=== PATIENT | male | born 1990 | race Caucasian/White ===

== ENCOUNTER 2018-07-30 19:35 | Emergency (ER) | payer MEDICAID, SELFPAY ==
[2018-07-30 19:36] VITALS: BP 135/70; PULSE 92; PULSE 94; RESP 14; RESP 17; TEMP 36.9; O2SAT 98; BMI 31.9
--- NOTE | 2018-07-30 21:11 | CT_ITS ---
STUDY: CT ABDOMEN AND PELVIS WITHOUT CONTRAST REASON FOR EXAM: Male, 27 years old. Abdominal pain RADIATION DOSAGE (If Supplied By Facility): CTDIvol = ( 19.61 ) mGy, DLP = ( 1166.03 ) mGycm TECHNIQUE: Transaxial images were obtained from the dome of the diaphragm to the symphysis pubis without oral contrast, and without intravenous contrast. Sagittal and coronal images were reconstructed. Individualized dose optimization techniques were used for this CT. COMPARISON: None. FINDINGS: This is a limited non-IV nonoral contrast study. There are small calcified granulomas within the left lower lobe.. The visualized portions of the heart are within normal limits. Normal liver. Normal gallbladder and extrahepatic biliary system. Normal spleen. Normal pancreas. Normal bilateral adrenal glands. Normal right kidney. Normal left kidney. Normal visualized stomach. Normal small intestine. There is mild colonic distention with mild colonic fecal load Normal abdominal aorta. Normal inferior vena cava. Normal retroperitoneum. Normal urinary bladder. Normal abdominal wall. Normal osseous structures. CT/Abdomen/Pelvis without Cont IMPRESSION: Mild colonic distention likely ileus, this is a limited non-IV nonoral contrast study Electronically Signed: Uriel Bojorquez, at 22:46 EDT Tel , Service support ,
[2018-07-30 21:26] LABS: Absolute Lymphocyte Count 1.83 X10^3/ul (0.83-4.51); Absolute Neutrophil Count 3.2 X10^3/uL (2.0-7.7); Basophil# 0.03 X10^3/uL; Basophil% 0.5 % (0-1); Eosinophil# 0.25 X10^3/uL; Eosinophils% 4.4 % (0-5); Hematocrit 41.4 % (40-54); Hemoglobin 14.2 g/dl (13.0-16.5); Lymphocyte # 1.83 X10^3/ul (4.0); Lymphocyte % 32.1 % (19-41); Mean Corp Hgb Conc 34.3 g/gl (32-36); Mean Corpuscular Hgb 29.3 pg (27.0-32.0); Mean Corpuscular Volume 85.4 fL (80-94); Mean Platelet Vol. 11.2 fl (6.2-12.0); Monocyte# 0.42 X10^3/uL; Monocyte% 7.4 % (0-10); Neutrophil # 3.16 X10^3/uL (2.7-7.7); Neutrophil % 55.4 % (47-70); Platelet Count 239 K/mm3 (150-450); RBC Distribution Width CV 12.9 % (11.6-14.6); RBC Distribution Width SD 40.3 fl (35.1-43.9); Red Blood Count 4.85 M/mm3 (4.6-6.2); White Blood Count 5.7 K/mm3 (4.4-11.0)
[2018-07-30 21:27] LABS: Bacteria 0 SEEN /hpf (None Seen); Red Blood Cells-Urine 0 SEEN /hpf (0-5); Squamous Epithelial Cells - UA 0 SEEN /hpf (0-5)
[2018-07-30] MEDS: Morphine 4 MG/ML Syringe IV (21:27)
[2018-07-30 21:29] LABS: POSITIVE COUNT NO; POSITIVE DIFFERENTIAL NO; POSITIVE MORPHOLOGY NO
[2018-07-30 21:34] LABS: Color, Urine Yellow (Yellow); Glucose, Dipstick Normal (Normal); Ketone-Dipstick Negative (Negative); Leukocyte Esterase-Dipstick Negative /ul (Negative); Nitrite-Dipstick Negative (Negative); Occult Blood-Urine 10 /ul (Negative); Protein-Dipstick 15 mg/dl (Negative); Specific Gravity, Urine 1.025 (1.002-1.030); Urine Bilirubin Dipstick Negative (Negative); Urine Clarity Clear (Clear); Urine Urobilinogen 4 mg/dl (Normal)
[2018-07-30 21:40] LABS: Mucous, Urine 3+ /hpf (<or=2+); White Blood Cells 0-5 SEEN /hpf (0-5)
[2018-07-30 21:42] LABS: ALB/GLOB Ratio 1.1 RATIO (0.9-2.4); AST(SGOT) 39 U/L (15-37); Alanine Aminotransfer ALT/SGPT 76 U/L (16-61); Albumin, Serum 3.7 g/dL (3.2-5.0); Alkaline Phosphatase 96 U/L (45-117); Anion Gap 7 (5-15); BUN 12 mg/dL (7-18); BUN/Creat Ratio 12.7 RATIO (10-20); Calcium,Total 8.2 mg/dL (8.5-10.1); Chloride 109 mmol/L (98-107); Creatinine, Serum 0.94 mg/dL (0.70-1.30); EST Glomerular Filtration Rate 102 mL/min (>60); Est Glom Filt Rate - Afr Amer 124 mL/min (>60); Estimated Creatinine Clearance 142.33 ml/min; Globulin 3.3 g/dL (2.2-4.2); Glucose 102 mg/dL (74-106); Lipase 123 U/L (73-393); Sodium Level 139 mmol/L (136-145)
[2018-07-30 23:29] VITALS: BP 121/78; PULSE 76; RESP 16; O2SAT 98
--- NOTE | 2018-07-31 00:16 | ED.VISSUMM ---
- ER Visit Summary Date of Service: 07/31/18 Chief Complaint: Abdominal pain History of Present Illness: The patient is a 27 M who presents with abdominal pain that has been getting worse over the past 2-3 days. Patient states the pain is intermittent and lasts for several hours. Patient describes the pain is sharp. Patient states pain is over the right side of his abdomen. Patient admits to nausea and one episode of vomiting. Patient states he did have diarrhea but has not had a bowel movement since yesterday. Patient denies any urinary complaints. Patient states he had a fever of 101 at home. Physical Examination: Vital signs are stable. Patient is afebrile. Patient is in no acute distress. Oral mucosa is pink and moist. Neck is supple. Trachea is midline. There is no JVD noted. Heart was regular rate and rhythm. Lungs are clear and equal bilateral. Abdomen is soft. There is right upper and right lower quadrant tenderness. There is no rebound or guarding noted. Bowel sounds are normal. Cranial nerves II through XII are intact. There are no focal motor or sensory deficits noted. Test Results: CT scan of the abdomen and pelvis was obtained. There is some mild colonic distention. CBC was normal. Metabolic profile showed a mild hypokalemia of 3.0. Urinalysis was normal. Emergency Department Course and Treatment: Patient was given a dose of morphine initially. Patient was given a dose of potassium here in the emergency department. Patient was instructed to follow-up with his primary care physician in 7-10 days. Patient understood and was agreeable with the plan. All questions were answered. Disposition: Discharge home Impression: Abdominal pain This note was generated with [employer] dictation software. It may contain incorrect words, spelling, and punctuation that were not noted in review of the chart prior to signing ED Disposition - Plan for ED Patient: Disposition: Home or Assisted Living Diagnosis: Abdominal pain Instructions: ED Abdominal Pain Unkn Cause Referrals: Care Physician,No Primary [Primary Care Provider] -
--- NOTE | 2018-07-31 00:22 | ED.DCSUM_ITS ---
- ER Visit Summary Date of Service: 07/31/18 Chief Complaint: Abdominal pain History of Present Illness: The patient is a 27 M who presents with abdominal pain that has been getting worse over the past 2-3 days. Patient states the pain is intermittent and lasts for several hours. Patient describes the pain is sharp. Patient states pain is over the right side of his abdomen. Patient admits to nausea and one episode of vomiting. Patient states he did have diarrhea but has not had a bowel movement since yesterday. Patient denies any urinary complaints. Patient states he had a fever of 101 at home. Physical Examination: Vital signs are stable. Patient is afebrile. Patient is in no acute distress. Oral mucosa is pink and moist. Neck is supple. Trachea is midline. There is no JVD noted. Heart was regular rate and rhythm. Lungs are clear and equal bilateral. Abdomen is soft. There is right upper and right lower quadrant tenderness. There is no rebound or guarding noted. Bowel sounds are normal. Cranial nerves II through XII are intact. There are no focal motor or sensory deficits noted. Test Results: CT scan of the abdomen and pelvis was obtained. There is some mild colonic distention. CBC was normal. Metabolic profile showed a mild hypokalemia of 3.0. Urinalysis was normal. Emergency Department Course and Treatment: Patient was given a dose of morphine initially. Patient was given a dose of potassium here in the emergency department. Patient was instructed to follow-up with his primary care physician in 7-10 days. Patient understood and was agreeable with the plan. All qu estions were answered. Disposition: Discharge home Impression: Abdominal pain This note was generated with [employer] dictation software. It may contain incorrect words, spelling, and punctuation that were not noted in review of the chart prior to signing ED Disposition - Plan for ED Patient: Disposition: Home or Assisted Living Diagnosis: Abdominal pain Instructions: ED Abdominal Pain Unkn Cause Referrals: Care Physician,No Primary [Primary Care Provider] -
[2018-07-31 00:32] VITALS: BP 122/74; PULSE 79; RESP 16; O2SAT 98
== END 2018-07-31 00:32 | disposition home or self-care (01) ==
PROVIDERS: Emergency Provider Emergency Medicine
DX: R10.9 Unspecified abdominal pain (principal); K63.89 Other specified diseases of intestine; R11.2 Nausea with vomiting, unspecified; E87.6 Hypokalemia; R51 Headache
CPT/HCPCS: 74176; 80053; 81001; 83690; 85025; 96374; 99284; A4216

== ENCOUNTER 2018-12-04 15:35 | Emergency (ER) | payer MEDICAID, SELFPAY ==
[2018-12-04 15:36] VITALS: BP 129/96; PULSE 92; RESP 16; TEMP 35.8; O2SAT 97; BMI 33.7
--- NOTE | 2018-12-04 16:19 | EKG12_ITS ---
Test Reason : ABDOMINAL PAIN Blood Pressure : / mmHG Vent. Rate : 076 BPM Atrial Rate : 076 BPM P-R Int : 148 ms QRS Dur : 088 ms QT Int : 374 ms P-R-T Axes : 015 079 030 degrees QTc Int : 420 ms Normal sinus rhythm Normal ECG Confirmed by VERENA PUENTES, BARBY ([id number]), editor book MARTIN WOODRUFF ([id number]) on 12/07/2018 12:22:56 PM Referred By: DC Confirmed By:BARBY ALBARADO MD
--- NOTE | 2018-12-04 16:20 | US_ITS ---
STUDY: ABDOMINAL ULTRASOUND - RIGHT UPPER QUADRANT REASON FOR VISIT: Male, 28 years old. Epigastric right upper quadrant pain for several years TECHNIQUE: Ultrasound evaluation of the right upper quadrant was performed with real-time and static sharpe-scale imaging. TECHNICAL QUALITY: Adequate. COMPARISON: 30 July 2018 FINDINGS: Liver: The liver measures 16 cm. There is normal echogenicity of the liver. The bile ducts are within normal limits. There is hepatic color flow. The direction of portal flow is hepatopetal. There is no demonstrated mass lesion. Gallbladder: Normal distended gallbladder. The gallbladder wall measures 2 mm. There is a negative sonographic Garcia's sign. There is no pericholecystic fluid. There are no gallstones. Common Bile Duct (C.B.D.): The common bile duct measures 5 mm. Pancreas: Is visualized in the suboptimal fashion Right Kidney: Normal size of the right kidney. The right kidney measures 12.1 x 5.1 x 5.2 cm. Normal renal cortex. The right cortex measures 1.8 cm. There is no demonstrated renal mass or cyst. There is no right hydronephrosis. US/Gallbladder IMPRESSION: Normal right upper quadrant ultrasound examination. Electronically Signed: Alice Jones, at 18:03 EDT Tel , Service support ,
--- NOTE | 2018-12-04 16:20 | RAD_ITS ---
STUDY: X-RAY CHEST REASON FOR EXAM: Male, 28 years old. Chest pain and epigastric pain TECHNIQUE: Frontal portable view of the chest was performed COMPARISON: None. FINDINGS: The lungs are clear and expanded. There is no demonstrated pleural abnormality. Normal size heart. Normal mediastinum and bob. Normal visualized pulmonary arteries. Normal visualized aortic arch and descending thoracic aorta. Normal visualized thoracic spine. Normal visualized ribs, clavicles, and shoulders. There is no demonstrated abnormality of the visualized soft tissue structures of the upper abdomen. RAD/Chest 1 View (Portable) IMPRESSION: Normal x-ray examination of the chest. Electronically Signed: Alice Jones, at 16:48 EDT Tel , Service support ,
--- NOTE | 2018-12-04 16:21 | ED.DCSUM_ITS ---
- ER Visit Summary Date of Service: 12/04/18 Chief Complaint: Abdominal pain History of Present Illness: The patient is a 28 M with intermittent abdominal pain for years. Pain came back today at work and it was severe. He was unable to continue at work, so he presented to the ED. The pain is in his epigastric region and radiates to his right upper quadrant, chest, and mid back. Associated with dizziness, nausea, and burping. He has noted some association with food and stress, but his symptoms are not consistent. 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 He was seen for abdominal pain in July and had a CT that showed mild colonic distention. Physical Examination: Afebrile and vital signs unremarkable. Alert and oriented. Heart regular. Lungs clear. Abdomen slightly tender in the right upper quadrant. No guarding or rebound. CVAs nontender. Skin appears normal without jaundice or pallor. Test Results: EKG, chest x-ray, labs, gallbladder ultrasound pending. Emergency Department Course and Treatment: Patient treated with fluids and GI cocktail while awaiting results. CBC normal. CMP unremarkable. Lipase normal. Troponin normal. EKG showed sinus rhythm at a rate of 76. No sign of acute ischemia or infarction pattern. Chest x-ray unremarkable. Right upper quadrant ultrasound was unremarkable. I suspect the patient may have reflux, spasm, gastritis, ulcer. I believe the patient is appropriate for outpatient follow-up. He will be treated with an H2 vero. Follow-up with his PCP. Return for any new or worsening issues. Treatment Plan: As above Disposition: Discharged Impression: 1. Epigastric pain This note was generated with [employer] dictation software. It may contain incorrect words, spelling, and punctuation that were not noted in review of the chart prior to signing ED Disposition - Plan for ED Patient: Referrals: Care Physician,No Primary [NON-STAFF] -
[2018-12-04] MEDS: 0.9% Normal Saline 1,000 ML 1000 ML IV (16:37)
[2018-12-04] MEDS: Mag Hydrox/Al Hydrox/Simeth 30 ML UDC PO (16:37)
[2018-12-04 16:39] LABS: Absolute Lymphocyte Count 1.82 X10^3/uL (0.83-4.51); Basophil# 0.03 X10^3/uL; Basophil% 0.4 % (0-1); Eosinophils% 2.6 % (0-5); Hematocrit 43.1 % (40-54); Hemoglobin 14.5 g/dL (13.0-16.5); Lymphocyte # 1.82 X10^3/ul (4.0); Lymphocyte % 23.8 % (19-41); Mean Corp Hgb Conc 33.6 g/dL (32-36); Mean Corpuscular Hgb 29.4 pg (27.0-32.0); Mean Corpuscular Volume 87.2 fL (80-94); Mean Platelet Vol. 11.2 fl (6.2-12.0); Monocyte# 0.57 X10^3/uL; Monocyte% 7.5 % (0-10); NRBC Flagged by Analyzer 0 % (0-5); Neutrophil # 4.99 X10^3/uL (2.7-7.7); Neutrophil % 65.3 % (47-70); Platelet Count 245 K/mm3 (150-450); RBC Distribution Width CV 12.4 % (11.6-14.6); RBC Distribution Width SD 39.4 fl (35.1-43.9); Red Blood Count 4.94 M/mm3 (4.6-6.2); White Blood Count 7.6 K/mm3 (4.4-11.0)
[2018-12-04 17:03] LABS: ALB/GLOB Ratio 1.1 RATIO (0.9-2.4); AST(SGOT) 14 U/L (15-37); Alanine Aminotransfer ALT/SGPT 29 U/L (16-61); Albumin, Serum 3.9 g/dL (3.2-5.0); Alkaline Phosphatase 96 U/L (45-117); Anion Gap 4 (5-15); BUN 11 mg/dL (7-18); BUN/Creat Ratio 11.9 RATIO (10-20); Calcium,Total 9.3 mg/dL (8.5-10.1); Chloride 106 mmol/L (98-107); Creatinine, Serum 0.92 mg/dL (0.70-1.30); EST Glomerular Filtration Rate 104 mL/min (>60); Est Glom Filt Rate - Afr Amer 126 mL/min (>60); Estimated Creatinine Clearance 144.15 ml/min; Globulin 3.5 g/dL (2.2-4.2); Glucose 84 mg/dL (74-106); Lipase 109 U/L (73-393); Protein, Total 7.4 g/dL (6.4-8.2); Sodium Level 137 mmol/L (136-145)
--- NOTE | 2018-12-04 18:24 | ED.DEP ---
ED Disposition - Plan for ED Patient: Instructions: ABDOMINAL PAIN, Unkown Cause, (Male) Prescriptions: Famotidine [Acid Controller] 20 mg PO BID #60 tab Prescription Printed Referrals: Keara Elkins [NON-STAFF] -
== END 2018-12-04 18:57 | disposition home or self-care (01) ==
LOC: ED 16:23
PROVIDERS: Emergency Provider Emergency Medicine; Family Provider Family Medicine; PCP Family Medicine
DX: R10.13 Epigastric pain (principal); R10.11 Right upper quadrant pain; M54.9 Dorsalgia, unspecified; R11.0 Nausea; R42 Dizziness and giddiness
CPT/HCPCS: 71045; 76705; 80053; 83690; 84484; 85025; 93005; 96360; 96361; 99284; J7030; A4216

== ENCOUNTER 2019-02-19 18:51 | Emergency (ER) | payer MEDICAID, SELFPAY ==
[2019-02-19 18:52] VITALS: BP 151/82; PULSE 92; RESP 18; TEMP 36.7; O2SAT 99; BMI 33.7
--- NOTE | 2019-02-19 19:30 | ED.RN ---
PT LEFT WITHOUT BEING SEEN.
== END 2019-02-19 19:30 | disposition left against medical advice (07) ==
LOC: ED 20:27
PROVIDERS: Emergency Provider Emergency Medicine; Family Provider Family Medicine; PCP Family Medicine
DX: R10.9 Unspecified abdominal pain (principal); Z53.21 Procedure and treatment not carried out due to patient leaving prior to being seen by health care provider

== ENCOUNTER 2019-08-16 09:00 | Outpatient (RCR) | payer MEDICAID, SELFPAY ==
--- NOTE | 2019-08-16 09:00 | BH.COMM_ITS ---
Communication Note - Communication with Client Communication Note: Met with pt to complete intial paperwork and [place] suicide risk screening. No signicant changes since pre-admission screening. Low risk for suicide. Denies active SI,plan, or intent. Protective factors. Future- oriented.
--- NOTE | 2019-08-16 09:14 | BH.SGPN.GN ---
Behaviors/Verbalizations/Mental Status: []Client alert and oriented, casual dress, hygiene tended to. Eye contact good. Motor activity appropriate. Speech within normal limits. Affect congruent, mood anxious, depressed. Thoughts linear, logical, no signs of hallucinations or delusions. Reviewed client?s symptom tracker, client indicated a 3/5, with 5 being severe, for suicidal ideation and a 0/5 for suicidal intent. Pt completed the [facility] suicidality screener and was not deemed an acute risk. Pt does not seem to be imminent risk to harm self or others. Client Response/Progress/Benefit: []Pt new to IOP tx. He responded well to session AEB pt listening attentively to others and sharing thoughts with group. Pt identified a mental health positive as taking the step to begin IOP tx as he had been nervous about doing so. Expressed knowing it is time to focus on his mental health. Identified additional win as reaching out to supports and beginning an online role playing game with them as a way to socialize and try something new. Pt identified his current stressor is feeling distant from his family. Pt seemed to benefit from support from peers and identifying mental health positives. Pt to continue IOP to increase healthy coping, challenge negative thinking and prevent decompensation. Narrative Note: []
--- NOTE | 2019-08-16 10:17 | BH.SGPN.GN ---
Behaviors/Verbalizations/Mental Status: []Client alert and oriented, casually dressed and groomed. Eye contact good. Motor activity appropriate. Speech within normal limits. Affect congruent, mood anxious. Thoughts linear, logical, no signs of hallucinations or delusions. Client Response/Progress/Benefit: []Client receptive of session, attentive in discussion and activity. Client discussed the quote and provided input that ?we stuff because we might be afraid to feel, or we don?t want our emotions to be right.? Discussed impact of ?stuffing? emotions which included overacting, anger outbursts, and ruined relationships. Client shared when he does not manage his anger well ?I?ll see things through an anger lens.? Client helped group identify barriers that impact one?s ability to communicate when emotions are high. These barriers included; shutting down, being ?snippy,? passive aggressive remarks, loud tone, misinterpretations, and negative thinking. Expressed that unmanaged emotions can negatively impact interactions with others and hurt oneself as well. Client participated in the activity and did well to manage emotions throughout. Client reported he learned a lot about how he responds during pressure situations and he used mindfulness to help himself cope in the moment. Client appeared to benefit from increasing awareness of how emotions can impact communication and practicing in the moment coping skills. Client?s first day of IOP. Will continue tx to prevent decompensation, improve mood stability, and decrease intensity and duration of symptoms. Narrative Note: []
--- NOTE | 2019-08-16 11:25 | BH.SGPN.GN ---
Behaviors/Verbalizations/Mental Status: []Client alert and oriented, casual dress, hygiene tended to. Eye contact fair. Motor activity appropriate. Speech within normal limits. Affect congruent, mood euthymic. Thoughts linear, logical, no signs of hallucinations or delusions. Client Response/Progress/Benefit: []Client engaged in session AEB client listening attentively to peer and providing input at times during session. Attentive during psychoeducation on 4 zones of regulation. Client able to identify how he feels in each zone as well as how he acts in each zone. Client able to identify what behaviors he exhibits when in the different emotional zones. Group identified coping skills can use to support self in each zone which included: journaling, opposite action, exercising, listening to music, drawing, and puzzle. Client stated he is most often in a heightened state of alertness which client reported results in client moving to a low state of alertness because feels depressed. Client stated he will focus on utilizing breathing techniques when in heightened state of alertness. Benefited from increased education on zones of regulation or stages of alertness for emotions and healthy coping skills to use for each zone. First day in IOP. Will continue IOP tx to increase healthy coping skills and prevent decompensation. Narrative Note: []
--- NOTE | 2019-08-16 15:16 | BH.DR.ITP ---
Initial Treatment Plan - Patient Information Visit Information: ADMISSION DATE: EXPECTED LOS: 4-6 weeks Diagnoses:: Major depressive disorder recurrent severe without psychosis F33.2; generalized anxiety disorde - Problems/Symptoms Problem #1:: Depression Symptom:: Sadness, hopelessness, worthlessness, guilt, fleeting SI Problem #2:: Anxiety Symptom:: Rumination, panic attacks
== END 2019-08-17 23:59 ==
LOC: BHIOP 09:00
PROVIDERS: Referring Provider Psychiatry & Neurology Psychiatry; Visit Provider Psychiatry & Neurology Psychiatry
DX: F33.2 Major depressive disorder, recurrent severe without psychotic features (principal); F41.1 Generalized anxiety disorder
CPT/HCPCS: H2020

== ENCOUNTER 2019-08-18 09:00 | Outpatient (RCR) | payer MEDICAID, SELFPAY ==
--- NOTE | 2019-08-18 09:58 | BH.NA_ITS ---
Physical Data - Vital Signs Pulse Rate: 80 Respiratory Rate: 16 Blood Pressure: 128/68 - Height/Weight Height: 1.88 m Weight:: 127.006 kg Weight in Pounds: 280.0 lbs Current Medication Compliance - Medication Compliance Do you take your medication as prescribed?: Yes Nutritional History - Appetite Nutritional Instructions:: If client shows signs of a swallowing problem, weight change of 10 pounds or more in the last month, or is on a diabetic diet, the physician will review and request a dietitian consult, as appropriate. All unintentional weight loss will be referred to the physician for decision on need for dietitian consult. Describe your appetite:: Good Additional nutritional information:: Client states it is normal for him to not eat at all during the day and eat several large meals in the evening. Functional Assessment - Sleep Pattern Describe any problems with sleeping: Client states he stays awake most of the ni ght most of the time playing video games, watching videos, etc. Client states he takes a nap during the day most of the time. Client very vague about how many hours he actually sleeps at night. - Activities Motor Activity:: Functional Sensory/Communication Assess - Vision Problems Do you have any vision problems?: Glasses - Communication Problems Do you have difficulty understanding what people are saying?: No Medical Problems/History - Respiratory Conditions Respiratory: Asthma Comments:: Client states he currently does not take any treatment for asthma. - Gastrointestinal Conditions Gastrointestinal: Other (See comments) Comments:: history of gastroschisis when he was born. - Pain Assessment Do you have acute or chronic pain?: No - Family History Family History: Family History (Last Reviewed 02/19/18 @ 12:23 by Cherelle Patel) Other Alcoholism Surgical History - Surgical History Have you had any surgeries? If so, list type and date:: Yes - gastroschisis at . Substance Abuse - Substance Abuse Please describe substance abuse in the last 30 days:: Client states he very rarely drinks alcohol socially, maybe a few times a year. Client denies tobacco use. Client states a past use of marijuana, states his last use was a very small amount a few weeks ago. Client states his uses marijuana and occasionally he will use with her. Client states he drinks 4-5 cans of pop a day, usually in the evening. Client realizes this is probably impacting his sleep and he should not drink so much caffiene in the evening. Mental Status Summary - Mental Status Significant Findings/Observations on Appearance and Mood:: Client is alert and oriented x 4. Client is casually groomed. Client is cooperative with assessment. Client makes good eye contact. Clients speech is coherent, loud at times, rapid at times. Client appears mildly anxious. Client with fair concentration, usually able to answer question the first time it is asked. Client makes logical associations and has normal processing. Client denies delusions/hallucinations, no evidence of same. Client denies SI. Suicide Assessment - Suicidal Ideation Are you currently or have you been suicidal in the past?: Yes - client denies current SI Suicidal Intentional Rating Scale (SIRS): Suicidal thoughts (past) Physician Notification: If Active suicidal thoughts/Will not contract for safety is checked, contact physician and document in the Physician Notification section below. Past Psychiatric History - MH Treatment Hx Past Psychiatric Medications:: Prozac and Buspar. Client states he stopped taking Buspar after it made him feel dizzy. Age of first mental health symptoms: Client states he was diagnosed with depression and anxiety approximately 6 months ago. Client states his has mental health issues and had him start going to the [facility] with her for therapy. Describe (age, circumstance, etc) any past hospitalizations: None Current providers for mental health treatment (counselor, psychiatrist, watch caser, etc.): Client has therapist and psychatrist at [facility] in [place]. Fall Risk Assessment - Age Age: Less than 60 - Mental Status Mental Status: Willing & able to ask for assistance when needed - Physical Status Physical Status: No problems - Impairments Impairments: None - Elimination Elimination: Continent AND independent - Gait or Balance Gait or Balance: Walks independently - Hx of Falls History of falls in the past 6 months: No known history - Medications/Substances Psychotropics:: Antihistamines (e.g. Benadryl) Medications/substances used within the past 24 hours or ordered to administer: 1-2 of the medications/substances listed above - Total Score Total Points:: 1 RN Summary of Impressions - Impressions Recommendations: Include psychiatric and medical issues, treatment planning recommendations, and discharge planning needs. Impressions: Psychiatric Issues: major depressive disorder recurrent severe without psychosis, generalized anxiety disorder - Level of Care How do the client's current symptoms and functional deficits support need for this level of care?: Client states his feelings of depression and anxiety have signficantly worsened in the last 2 months or so. Client states his anxiety got out of hand and caused him to quit several jobs, many before he even started work. Client states he gets so anxious thinking about going to work, stating he thinks about how it is a end job but that he doesn't want to try harder to do anything better with myself. Client reports feelings of decreased energy, decreased motivation, hopelessness, feelings of panic, restlessness and racing thoughts. Client states his 's mental health is a stressor for him, but reports he is in good spirits today because his and him have been fighting less and she is being more understanding of his feelings and that makes him feel better. IOP will promote gains and prevent further decompensation while providing social support and skills training.
[2019-08-18 11:06] VITALS: BP 128/68; PULSE 80; RESP 16
--- NOTE | 2019-08-18 11:14 | BH.PSY.EVA_ITS ---
Psychiatric Evaluation - Initial Evaluation Initial Evaluation: [] History of Present Illness: [] The patient is a 28-year-old male who is been for 18 months and is currently living with his and 6-year-old stepdaughter in a duplex that they rent. He was referred by his to the [facility] behavioral health IOP program for worsening depression and anxiety. He has had symptoms of depression increasing anxiety for about the past 4 months. He has been unable to function at work secondary to anxiety and he was getting panic attacks and racing thoughts and an impending sense of doom with increased heart rate prior to quitting work. Now he is getting those severely anxious periods less often than he was when he was working but still gets them on occasion. 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 The patient says he changes jobs about every 6 months to 2 years because he gets bored at the job and wants to change. His 's mental health symptoms have been bad in the past and this is been a stress on him. He states that she is feeling better now. The patient was feeling overwhelmed by not being able to work and by his 's mental health recently before starting the IOP program. His biggest stress right now he is thinks his work and financial. For primary support he has his grandmother, and friends. He complains of initial insomnia mostly because he stays up very late playing video games and then the rest of his family wakes him up because they get up in the morning. He does take naps later though so he thinks he is getting about 8 hours of sleep total in about 6 hours at night. He has occasional feelings of hopelessness and worthlessness. He feels guilty that he is unable to work and support his family right now. He has not much motivation but he is enjoying playing video games and talking with friends online. His appetite is unchanged. He has low energy especially in the morning and has some fatigue during the day. His concentration is for the most part normal. He had fleeting suicidal thoughts several weeks ago but he says he would never do it. Now he has fleeting thoughts at most twice a week but he has not had any plan developed for suicide. He denies homicidal ideation, hallucinations, clyde, PTSD, OCD and eating disorders. He denies any seizures or head trauma. He has no's history of self-harm. Current Psychiatric Medications: [] Hydroxyzine 10 mg tablets, he takes once a day in the near bedtime. And is thinks he is on one other medication but is not taking it. The patient has trouble taking meds and tends to go off meds.. Past Psychiatric History: [] He has no psychiatric admissions ever. No suicide attempts ever. He has had a counselor for about a month but he saw that person only once 2 months ago. He has a psychiatric provider for his medication also. He states he was first depressed severely in the past 4 months but he feels that he had some mild depression since around age 11 off and on. He denies ever having clyde. He never took any psychiatric medication until about 6 months ago. At that time he was given Prozac which he took for 1 month and it may have helped a little but he never got it refilled. He took BuSpar as needed but he had bad side effects on BuSpar which was extreme dizziness and was unable to take BuSpar. No other psych meds ever. Substance Use History: [] He is a non-smoker. No marijuana use since 5 months ago. He only uses marijuana occasionally in the past and never more than once a month or so. He uses alcohol about once a month when he has 1-2 drinks or less. He has not tried or used any other drugs ever. He is never done any rehab. Allergies: [] No known allergies Medications: [] Hydroxyzine only Past Medical History: [] He is overweight and has a history of gastroschisis as a and he had surgery to repair this as an . No other medical problems or surgeries. He has normal sexual function and no biological children. Family Psychiatric History: [] His mother in 2013 of a rare form of cancer. His father is in his 50s and is healthy but the patient says he does not talk to his father at all because he does not feel his father is a good person. There is a family history of some depression probably but he is uncertain. No suicides in the family. His mother was an alcoholic and he thinks maybe his biological father is an alcoholic. Personal/Social History: [] He was born and raised in [place] and describes his childhood as not great. His mother was an alcoholic and was never home as she owned a bar. His dad was very promiscuous and cheated on his mother with other women and the patient witnessed some of this. The patient says his father uses people and is not really loving. The patient denies verbal, sexual or physical abuse ever. He has one half brother and half sister who have the same father as him. He has never even met his half-brother even though he is only 3 months older than him. School was okay for him and he did not work hard but passed his classes. He went to vocational trade school in high school for [employer] and [employer] which she is really interested in. He graduated high school and had 1-2 semesters of college for an associates degree but did not finish. He plans to possibly try to finish his degree later. His is in college now to get her masters and they can afford for both of them to be in school currently. He worked for 2 years at his longest job and 6 to 2 years 6 months to 2 years at any job. He at age 27 and has been about 18 months. His is 29 years old and they have that she has 1 daughter who is 6 years old. He has had a few other serious girlfriends of 4 years and 2 years in the past. His is supportive of him and he said his marriage is kind of up and down but okay. He denies any abuse in the marriage. Legal History: [] Legal history is negative. Review of Systems: [] Negative except as noted in present illness. Vital Signs: [] Mental Status Examination: [] Patient is a 28-year-old male who is overweight and wearing glasses. He is casually dressed and groomed with good hygiene. He is cooperative and pleasant during the interview. He has no psychomotor agitation or retardation. Speech is fluent and normal rate and rh ythm with no pressure. He is somewhat of a talkative person. Mood is depressed. Affect is constricted to full. Thought process is goal-directed and organized. Thought content: No evidence of hallucinations or delusions. No evidence of homicidal ideation. He had fleeting suicidal thoughts and in the past but never has had a plan and says he would never commit suicide. Reality testing is intact. Intelligence is average. Judgment is intact. Insight: Some present. Labs and testing: Not sure if these have been done in the past. Prescription was given for TSH and vitamin D Diagnoses: [] Edgarton I: [] Major depressive disorder recurrent severe without psychosis; generalized anxiety disorder Edgarton II: [] Negative Edgarton III: [] Negative Edgarton IV: [] Primary support, financial and work issues Plan: [] The patient will start the IOP program at [facility] as the support, structure, education, individual and group therapy will hopefully prevent worsening of the patient's symptoms. He felt safe during the interview and if at any time he does not feel safe he will let us know or go to the emergency room. Long discussion was had with the patient about the benefits of starting an antidepressant for anxiety and depression. The risk, benefits, side effects and possible complications were discussed with the patient and he understands accepts these. He agrees to try Lexapro 10 mg tablet. He will take one half of a tablet for the first 3 days in the evening and then he will take 1 p.o. in the evening when he gives his her medication. I will see the jamal cat in follow-up in 2 to 3 weeks.
--- NOTE | 2019-08-18 11:22 | BH.MTP_ITS ---
Master Treatment Plan - Patient Information Program Physician:: Dr. Surekha Matthews Primary Therapist:: Nury John - Psychiatric Diagnoses Psychiatric Diagnoses:: Major depressive disorder recurrent severe without psychosis F33.2; generalized anxiety disorder Diagnosis Code(s):: F 33.2 - Estimated LOS Estimated LOS (in weeks):: 6 Problem/Goal #1 - Problem/Goal #1 Stated Goal:: Client will reduce depressive symptoms, fleeting SI, and worthlessness associated with major depressive disorder. Description of Barriers: Client self-reports a history of lack of consistent follow through. Client shared he has not always been medication compliant as he will forget to take his medications at times. Client shared one of his biggest stressors and barriers is that he often does not know how he feels. Client reported his is both a support and a stressor as she has her own mental health struggles as well. Client self-identified as a people person who often puts others' needs ahead of his own which results in burnout. Functional Impact: Client is a 28-year-old male with a history of depression and anxiety. Client denies any previous hospitalizations or suicide attempts. Client presents to [facility] due to worsening symptoms over the last 3-4 months and not benefiting from traditional outpatient counseling. Client was referred to [facility] by his . Client currently endorses increased fatigue, lack of energy, worthlessness, hopelessness, lack of motivation, and fleeting suicidal ideations within the past few months. Client reports the thoughts last about a minute and that he would never act on them. Client also endorses increased anxiety over the past few months. Anxiety symptoms include; racing thoughts, ruminations, restlessness, and panic attacks. Client reported his anxiety has prevented him from working and leads to avoidance behaviors. Client's current stressors include significant life changes within the past year including getting , getting a stepson, and COVID-19. Client reported his 's mental health is not doing well right now either which is a trigger for client. Client's symptoms are currently impacting his social, familial, and occupational functioning. Goal Relevant Strengths/Supports: Client presents as a kind, funny, and outgoing individual who is motivated for treatment per his report. Client self-identifies as a resilient person who always finds the bright side. Client is and has a stepson. Client shared his is a support and understanding about mental health. Client enjoys playing video games and connecting with people online. Client is established with outpatient services at [facility]. - Objectives Objective #1 Stated Objective: Client will learn and utilize 2-3 healthy coping strategies to manage depressive symptoms as shown by reduced DSM-5 cross-cutting symptom measure score. Interventions: Through group and individual sessions, therapist will assist client in learning internal coping strategies to manage depressive symptoms, along with helping client identify triggers. Therapist will teach client about self-care and personal resilience factors and how they can benefit the healing process. Therapist will also reinforce the benefits of consistent medication compliance and use of healthy coping skills. Discharge Criteria: Client will have achieved this goal when his DSM-5 symptoms for depression have decreased and he can verbalize and has practiced at least 2 healthy coping strategies. Target Date: 09/27/19 Review Date: 09/15/19 Status: open Objective #2 Stated Objective: Client will identify and replace 2-3 negative thinking patterns that reinforce depressive symptoms, worhtlessness, and guilt. Interventions: Through groups and individual therapy, client will be provided with education on cognitive distortions, mistaken beliefs, and identifying and combating negative self-talk. Therapist will assist client in recognizing triggers for increased suicidal and depressive thought patterns. Therapist will help client explore connection between thoughts, feelings, and actions and help client reframe depressive thought patterns. Therapist will help client gain awareness of why client has developed negative thoughts and core beliefs of self and teach client how to reframe these thoughts. Discharge Criteria: Client will have accomplished this goal when client can identify and replace at least 2 negative thinking patterns with more realistic, positive statements. Target Date: 09/27/19 Review Date: 09/15/19 Status: open Problem/Goal #2 - Problem/Goal #2 Stated Goal:: Client will reduce overall frequency, intensity, and duration of anxiety to improve daily functioning. Description of Barriers: Client self-reports a history of lack of consistent follow through. Client shared he has not always been medication compliant as he will forget to take his medications at times. Client shared one of his biggest stressors and barriers is that he often does not know how he feels. Client reported his is both a support and a stressor as she has her own mental health struggles as well. Client self-identified as a people person who often puts others' needs ahead of his own which results in burnout. Functional Impact: Client is a 28-year-old male with a history of depression and anxiety. Client denies any previous hospitalizations or suicide attempts. Client presents to [facility] due to worsening symptoms over the last 3-4 months and not benefiting from traditional outpatient counseling. Client was referred to [facility] by his . Client currently endorses increased fatigue, lack of energy, wor thlessness, hopelessness, lack of motivation, and fleeting suicidal ideations within the past few months. Client reports the thoughts last about a minute and that he would never act on them. Client also endorses increased anxiety over the past few months. Anxiety symptoms include; racing thoughts, ruminations, restlessness, and panic attacks. Client reported his anxiety has prevented him from working and leads to avoidance behaviors. Client's current stressors include significant life changes within the past year including getting , getting a stepson, and COVID-19. Client reported his 's mental health is not doing well right now either which is a trigger for client. Client's symptoms are currently impacting his social, familial, and occupational functioning. Goal Relevant Strengths/Supports: Client presents as a kind, funny, and outgoing individual who is motivated for treatment per his report. Client self-identifies as a resilient person who always finds the bright side. Client is and has a stepson. Client shared his is a support and understanding about mental health. Client enjoys playing video games and connecting with people on line. Client is established with outpatient services at [facility]. - Objectives Objective #1 Stated Objective: Client will identify 2-3 anxiety triggers and 2 calming coping skills to reduce anxiety as shown by decreased DSM-5 cross cutting symptom measure scores. Interventions: Therapist will help client increase awareness of anxiety triggers and educate client on the ways anxiety impacts overall health. Therapist will teach client various calming and mindfulness strategies to promote emotional regulation and reduction of anxiety. Therapist will encourage client to implement healthy coping skills on a regular basis. Discharge Criteria: Client will have accomplished this goal when can report at least 2 triggers for anxiety and 2 calming strategies to manage symptoms. Additionally, client will have accomplished this goal when she can report reduced DSM-5 cross cutting symptoms for anxiety. Target Date: 09/27/19 Review Date: 09/15/19 Status: open Objective #2 Stated Objective: Client will identify 2-3 cognitive distortions or mistaken beliefs that lead to rumination and learn 2-3 ways to manage these thoughts to reduce anxiety. Interventions: Therapist will provide education on the most common cognitive distortions and teach client the connection between thoughts, emotions, and feelings. Therapist will assist client in identifying, challenging, and replacing dysfunctional thoughts with positive, more realistic thoughts. Therapist will use CBT and DBT techniques to help client gain awareness of thinking errors and learn how to more effectively handle negative thoughts. Therapist will also help client increase his distress tolerance skills. Discharge Criteria: client will have accomplished this goal when can identify at least 2 cognitive distortions and at least 2 coping skills to manage negative thoughts. Target Date: 09/27/19 Review Date: 09/15/19 Status: open
--- NOTE | 2019-08-18 11:28 | BH.DR.ITP ---
Initial Treatment Plan - Patient Information Visit Information: ADMISSION DATE: EXPECTED LOS: 4-6 weeks - Problems/Symptoms Problem #1:: Depression Symptom:: Sadness, hopelessness, worthlessness, guilt, fleeting SI Problem #2:: Anxiety Symptom:: Rumination, panic attacks
--- NOTE | 2019-08-18 14:20 | BH.MDN ---
Multi-Disciplinary Note - Note 30-min Individual Time Started:: 11:50 Date: 08/18/19 Purpose of session/treatment goals addressed:: The purpose of this session was to gather information on client's current stressors, symptoms, and treatment goals. Another goal was to build rapport. Eye Contact:: Fair Motor Activity:: Appropriate Appearance:: Casual Speech:: Rambling Mood:: Euthymic, Anxious Affect:: Congruent Thoughts:: Racing, No evidence of hallucinations/delusions noted Staff Interventions:: Therapist used active listening and open-ended questions to explore client's current stressors, symptoms, history, and treatment goals. Therapist used strengths perspective to build rapport and help client identify personal resilience factors. Therapist provided psychoeducation on depression, maintenance cycles, and cognitive distortions. Client Response:: Client responded well to session, open to meeting with therapist. Client shared he has been enjoying IOP thus far. Client reports he has enjoyed gaining insight from the groups and he hopes to further improve his self-awareness. Client stated one of his biggest stressors is not knowing exactly how he feels. Client discussed his other goals for treatment which included; reducing anxiety and depression, getting a handle on my emotions, challenging negative thinking, increasing confidence, and finding a self-care balance. Client reported within the last year he has gone through some significant life changes including getting and getting a stepson. Client shared he has not taken time for his self-care since entering this relationship and would like to change that. Client also reported that he has a history of inconsistently taking his medications and he would like to get better at being medication compliant. Risks/Concerns:: Client denies any suicidal ideations, plan, or intent as of 08/18/19 Progress Toward Goals/Plan:: Client's second day of IOP. Client reports motivation to make changes and learn healthy coping skills. Client currently endorses ruminative anxiety, a depressed mood, restlessness, racing thoughts, irritability, variable sleep, and difficulty concentrating. Client shared has struggled with balancing his emotions, life stressors, and self-care. Client also reports frequent reassurance seeking in his marriage which reinforces his low confidence. Will continue IOP tx to prevent decompensation, increase mood stability, and learn healthy coping skills. Time Stopped:: 12:10
--- NOTE | 2019-08-23 09:40 | BH.COMM ---
Communication Note - Communication with Client Communication Note: Client called and canceled his scheduled IOP session today. Would like to make up his day and come in tomorrow 08/24/19. instead.
--- NOTE | 2019-08-24 10:16 | BH.SGPN.GN ---
Behaviors/Verbalizations/Mental Status: []Client alert and oriented, casually dressed and groomed. Eye contact good. Motor activity appropriate. Speech within normal limits. Affect congruent, mood euthymic. Thoughts linear, logical, no signs of hallucinations or delusions. Client Response/Progress/Benefit: []Client was attentive throughout AEB actively listening and providing input. Participated in discussion of the quote and shared agreeing that choosing a healthier path in life can be difficult. Expressed that in the past he knew it was time to take a different path but struggled with ignoring the warning signs. The group worked together to identify barriers that may prevent choosing a new and healthier path to mental wellness which included; not wanting the change/lack of readiness, lack of motivation and willingness to put forth effort, limited support, as well as having a negative or distorted perspective. Attentive during psychoeducation on the chapters of life, provided insight into distinguishing factors in each chapter. Benefited from increased awareness and education on barriers to choosing new wellness paths and the different chapters of life experienced in taking a new path. Client willingly participated in processing portion, shared connecting with components of each chapter. Progress noted in pt ability to connect with materials discussed. Continues to struggle with consistent attendance and consistent skill application. Will continue IOP tx to further reduce depression, promote healthy boundary setting and self-care, while improving client?s ability to function at baseline. Narrative Note: []
--- NOTE | 2019-08-24 11:15 | BH.SGPN.GN ---
Behaviors/Verbalizations/Mental Status: []Client alert and oriented, casual dress, hygiene tended to. Eye contact fair. Motor activity appropriate. Speech within normal limits. Affect constricted, mood depressed. Thoughts linear, logical, no signs of hallucinations or delusions. Client Response/Progress/Benefit: []Client was an engaged participant in group discussion, contributing to discussion at times and listened attentively to others. Client reported believes he is currently in chapter 3? as client shared he has increased awareness of unhealthy coping, but still engages in behavior that keeps him stuck. Completed worksheet and willing to share with the group. Pt stated negative thinking, habit, stubbornness, lack of motivation, and what-if thinking are currently keeping him stuck from progress. Pt reported he will work on increasing motivation by completing at least one task everyday until Friday. Benefited from group by identifying thoughts and behaviors that have kept him stuck and identifying goal to promote progress. Will continue in IOP to increase consistent use of healthy coping, challenge negative thoughts and prevent decompensation. Narrative Note: []
--- NOTE | 2019-08-25 09:02 | BH.SGPN.GN ---
Behaviors/Verbalizations/Mental Status: []Client alert and oriented, casual in appearance. Eye contact good. Motor activity appropriate. Speech within normal limits. Affect congruent, mood agitated. Thoughts linear, logical, no signs of hallucinations or delusions. Reviewed daily symptom tracker and client denies any suicidal ideation, plan, or intent at this time. Client Response/Progress/Benefit: []Pt was an active participant in group AEB pt listening attentively, providing input, and openly processing with the group. Emotion for today is agitated and shared that this is due to getting limited sleep the night before. He identified mental health positive as being able to identify his agitated mood and utilize grounding skills via deep breathing to regulate and calm himself. Pt stated additional mental health positive as challenging urges to seek reassurance through use of positive self-talk and thought challenging. Expressed stressor as continuing to struggle with some agitation despite grounding skills used. Receptive of additional calming skills suggested by fellow participants. Appeared to benefit from support of the group. Progress noted in pt ability to identify and begin addressing barrier of reassurance seeking as well as use of mood regulation skills. Continued IOP tx recommended to continue application of healthy coping skills, identify and challenge distorted thoughts, reduce mental health sx, and prevent decompensation. Narrative Note: []
--- NOTE | 2019-08-25 10:15 | BH.SGPN.GN ---
Behaviors/Verbalizations/Mental Status: []Client alert and oriented, casual dress, hygiene tended to. Eye contact fair. Motor activity restless. Speech within normal limits. Affect constricted, mood agitated. Thoughts linear, logical, no signs of hallucinations or delusions. Client Response/Progress/Benefit: []Pt passive participant AEB pt not providing input during discussion, however appeared to listen attentively to others. When discussing quote pt noted the importance of being able to adapt to situations to help increase resiliency. Group identified being resilient is important because helps people bounce back from hardships. Pt showed increased engagement during small group discussion about different strategies to improve resiliency. Pt seemed to benefit from increasing awareness of strategies to increase personal resilience. Pt to continue IOP to increase healthy coping, decrease panic attacks and prevent decompensation. Narrative Note: []
--- NOTE | 2019-08-25 11:14 | BH.SGPN.GN ---
Behaviors/Verbalizations/Mental Status: []Client alert and oriented, disheveled appearance. Eye contact poor. Motor activity restless. Speech within normal limits. Affect constricted, mood agitated and irritable. Thoughts linear, logical, no signs of hallucinations or delusions. Client Response/Progress/Benefit: []Client engaged participant as evidenced by client providing input throughout discussion and listening attentively to peers. Clients participation level increased from previous session. Client worked cooperatively with peers to identify how each resiliency component can help increase personal resiliency. Client identified current stressors in his life that he would like to become more resilient towards. Client reported he wants to work on the resilience component of keeping things in perspective and accepting stressors out of his control. Client would like to do this by practicing self-talk in the moment when he recognizes warning signs. Client identified personal resilience factors that will support client in this goal which included self-awareness of pitfalls, setting small goals, and a positive outlook most days. Client appeared to benefit from identifying goal to improve personal resilience factors. Client to continue IOP to improve emotional regulation, learn calming skills, and prevent decompensation. Narrative Note: []
--- NOTE | 2019-08-25 14:14 | BH.MDN ---
Multi-Disciplinary Note - Note 60-min Individual Time Started:: 12:15 Date: 08/25/19 Purpose of session/treatment goals addressed:: The purpose of this session was to address client's current symptms, stressors, and barriers. Another goal was to discuss self-care and boundary setting with self and others. Eye Contact:: Good Motor Activity:: Restless Appearance:: Casual Speech:: Rambling, Rapid Mood:: Anxious, Irritable Affect:: Congruent Thoughts:: Racing, No evidence of hallucinations/delusions noted Staff Interventions:: Therapist used active listening and open-ended questions to explore client's current symptoms, stressors, and barriers. Therapist helped client process a trigger that occured during group session and reviewed healthy ways to manage this trigger. Therapist addressed barriers keeping client from getting to bed on time and getting to group. Therapist attempted to help cleint problem-solve strategies to overcome these barriers. Therapist discussed self-care and the consequences of not practicing self-care and boundary setting. Client Response:: Coni responded well to session, open to meeting with therapist. Client entered session looking agitated and restless. Client reported he was triggered during group which exacerbated his agitation and anxiety. Client reported that he could not focus and was feeling very on edge during group. Receptive to processing his trigger as well as problem-solving ways to manage this in the future and in the moment. Client recognized that he can benefit from practicing in the moment coping skills during group so he does not miss out on learning the material that day. Client reported he has been struggling with balance. Client shared he has been staying up late playing video games with his friends which has helped improve client's mood. However, staying up late has also caused client to miss IOP at times. Client and therapist discussed pros and cons of staying up late on client's mental and physical health. Client reported he currently feeling like there are more pros to staying up late and he is willing to deal with the cons. Client receptive to having open communciation with his supports to attempt to find more balance in his sleep schedule. Client and therapsit discussed boundary setting with himself and with others to promote balance. Risks/Concerns:: Client denies any suicidal ideations, plan, or intent as of 08/25/19. Progress Toward Goals/Plan:: Client responds well to treatment as he is an active group memeber and engaged during individual sessions. However, client is somewhat inconsistent with attendance. Client self-reports he continues to struggle with setting boundaries with himself and others which results in poor self-care. Client reports his mood has improved due to the weather getting warmer and spending time online with new friends. Client currently endorses ruminative anxiety, restlessness, racing thoughts, irritability, poor sleep, and difficulty concentrating. Will continue IOP tx to prevent decompensation, increase mood stability, and improve self-care habits. Time Stopped:: 13:13
--- NOTE | 2019-09-01 09:05 | BH.SGPN.GN ---
Behaviors/Verbalizations/Mental Status: []Client alert and oriented, disheveled appearance. Eye contact good. Motor activity appropriate. Speech within normal limits. Affect constricted, mood anxious/dysthymic. Thoughts linear, logical, no signs of hallucinations or delusions. Reviewed client?s symptom tracker, no signs of suicidal ideation, plan, or intent as of 09/01/19. Client Response/Progress/Benefit: []Client responded well to session, providing supportive statements and listening attentively to peers. Client reports he had a rough day yesterday and feels not present today. Client declined to go into detail about what triggered this, but he shared that he would talk with his individual therapist about this. Client reported he self-isolated yesterday somewhat because of this stressor, but he tried to use opposite action as well. Client shared he rearranged furniture in his home and he spent time with his online friends to try and improve his mood. Client reported talking with his friends helped pick me up however, client shared he has not been able to shake his upsetting feelings. Appeared to benefit from connecting with peers and getting ideas for helping himself be present today during group. Client will continue IOP tx as he continues to struggle with mood instability and is not functioning at his baseline. Narrative Note: []
--- NOTE | 2019-09-01 11:19 | BH.SGPN.GN ---
Behaviors/Verbalizations/Mental Status: []Pt eye contact good, casually dressed, motor activity appropriate, speech normal rate and tone, mood dysthymic, congruent affect, thoughts linear and intact, no evidence of delusions or hallucinations. Client Response/Progress/Benefit: [] Client responded well to session AEB listening and taking notes, as well as providing input to discussion. Asked clarifying questions and provided examples throughout. Engaged in activity about facts and statistics of mental illness. Group connected with the mental health statistics, recognizing the prevalence of mental health. Group brainstormed strategies to combat social and perceived stigma which included: educating others and themselves, no longer using negative language about mental illness, being open about mental health, volunteering, and not using deflection like humor or joking to minimize symptoms.. Client stated he believes he would benefit from sharing his mental health needs with his supports on a more consistent basis in order to reduce social and perceived mental health stigma. Appeared to benefit from increasing awareness of strategies to combat stigma. Progress in improved input. Will continue IOP tx to reduce anxiety and depression, improve change behaviors, improve consistent application of coping skills, and prevent decompensation. Narrative Note: []
--- NOTE | 2019-09-01 11:33 | PCM.BH.PN_ITS ---
Progress Note Progress Note: History of Present Illness/Interim History: [] The patient is a 28-year-old male who is seen in follow-up at the [facility] behavioral health IOP program. I last saw the patient 2 weeks ago and at that time the patient agreed to start Lexapro 10 mg p.o. daily. In addition he was given a prescription to obtain TSH and vitamin D level. The patient did not get his labs drawn yet but he agrees to get them drawn in the next day or so. In addition he did not start the Lexapro yet. He says he just has not been motivated to take the medication. He states that he spent the last therapy session with his therapist here working on strategies to enable him to remember and be motivated to take his medication. These include habit stacking. The patient's mood remains depressed and he still has occasional hopelessness. He says that he stays up late and then he worries that the medication will make him sleepy so he does not take it. He understands that he would probably get better faster if he would take his medication. Patient also had a downward swing of his mood due to some stressors lately with his 6-year-old stepdaughter. He states that he loves his stepdaughter and he is involved in her discipline. He says that his stepdaughter told him recently that she does not love him and does not even like him. Patient says that he took this very personally and his mood worsened. Discussed with the patient ways to learn to not think take things personally especially from the 6-year-old. He denies any suicidal or homicidal ideation. He denies any passive thoughts that he would not care if he lately. He denies any hallucinations, delusions, or other psychiatric symptoms. Current Psychiatric Medications: [] Hydroxyzine 10 mg p.o. once a day near bedtime. He did not start the Lexapro. Mental Status Examination: [] Patient is a 28-year-old male who is overweight and wears glasses. He is casually dressed and groomed with good hygiene. He is cooperative during the interview and has no psychomotor agitation or retardation. He has good eye contact. His speech is fluent with no pressure. He is somewhat depressed in mood. Affect is full today. Thought process is goal-directed and organized. Thought content: No evidence of suicid al or homicidal ideation. No evidence of passive thoughts of . No evidence of hallucinations or delusions. Judgment is intact. Insight: Some present. Impulsivity: Low. Diagnoses: [] Lavaca I: [] Major depressive disorder recurrent, severe without psychosis; generalized anxiety disorder Lavaca II: [] Negative Lavaca III: [] Negative Lavaca IV:[]] Primary support, financial and work issues Plan: [] The patient will continue the IOP program at [facility] as the support, structure, education, individual and group therapy will hopefully help prevent worsening of his symptoms. He felt safe during the interview and if at any time he does not feel safe he will let us know or go to the emergency room. The risks, benefits, and possible side effects and complications were discussed with the patient and he understands and accepts these for the Lexapro. He agrees to try to use the habits discussed in therapy and in our appointment in order to take his Lexapro. The patient will also get his lab work done. I will see the patient in follow-up in 2 weeks or as needed.
--- NOTE | 2019-09-01 14:30 | BH.MDN_ITS ---
Multi-Disciplinary Note - Note 45-min Individual Time Started:: 10:30 Date: 09/01/19 Purpose of session/treatment goals addressed:: The purpose of this session was to address client's current symptoms, stressors, and barriers to taking medications. Another goal to challenge recent personalizations reinforcing depression. Other topics included; communication Eye Contact:: Good Motor Activity:: Restless Appearance:: Disheveled Speech:: Rambling, Rapid Mood:: Anxious, Depressed Affect:: Congruent Thoughts:: Circular, No evidence of hallucinations/delusions noted Staff Interventions:: Therapist used active listening and open-ended questions to explore client's current symptoms, stressors, and barriers to taking medications. Therapist discussed habit-stacking with client and how this could help client increase consistency. Therapist helped client process a trigger with client?s stepdaughter and provided psychoeducation on child development. Therapist helped client identify and challenge personalization statements that were reinforcing depression. Therapist encouraged client to use open communication with his regarding this situation. Client Response:: Client responded well to session, open to meeting with ther apist. Client reports he is feeling off today and he shared that this is because of a situation with his stepdaughter yesterday. Client shared his stepdaughter has not grown up with a lot of structure and consistency in her life. Client reported since being in his stepdaughter's life for almost two years, he has been trying to provide more consistency for her. Client stated his does not back me up and client reports he comes off as the bad baljinder when he makes his daughter eat well and chores. Client reported yesterday his stepdaughter told client she did not like him or love him. Client shared I always knew there would come a time when she wouldn't like me, but I didn't think it would be this fast. Client reported he took this personally and it triggered negative thoughts and increased depressive symptoms. Client receptive to discussion of child development, parenting styles, and attachment. After learning more about the benefits of a structured parenting style, child emotional development, and further processing this stressor client stated he felt much better. Client shared parenting is new to him and as a people pleaser it is hard to hear that someone does not like him. Client reported he would like to talk with his about becoming more of a united front with parenting their daughter. Client and therapist also discussed strategies to promote medication compliance and use of self-care strategies. Risks/Concerns:: Client denies any suicidal ideations, plan, or intent as of 09/01/19. However, there is a concern regarding client's medication noncompliance. Discussed these concerns with client and came up with a strategy to help client take medications more consistently. Progress Toward Goals/Plan:: Client responds well to treatment as he is actively engaged, and he reports increased self-awareness which demonstrates growth. However, client continues to struggle with consistent attendance and today reported he has not been medication compliant. Client self-reports he continues to struggle with setting boundaries with himself and others which results in poor self-care. Client has been spending more time with friends online which has been positive per client?s report. Client currently endorses ruminative anxiety, restlessness, racing thoughts, lack of motivation, a depressed mood, irritability, poor sleep, and difficulty concentrating. Will continue IOP tx to prevent decompensation, increase mood stability, and improve consistency in self-care activities. Time Stopped:: 11:20
--- NOTE | 2019-09-02 09:00 | BH.SGPN.GN ---
This psychotherapy group was provided via telehealth using two-way, real-time interactive telecommunication technology between the patients and the provider. The interactive telecommunication technology included audio and video. The patient was offered telemedicine as an option for care delivery during the COVID-19 pandemic and consented to this option. Patient location: [place] Provider located at [facility] Behaviors/Verbalizations/Mental Status: []Client alert and oriented, casual dress, hygiene tended to. Eye contact good. Motor activity appropriate. Speech within normal limits. Affect congruent, mood euthymic. Thoughts linear, logical, no signs of hallucinations or delusions. Client Response/Progress/Benefit: []Pt responded well to session as evidenced by pt listening attentively to others and openly sharing thoughts and feelings. Pt reported a mental health positive as getting to bed at a reasonable time last night so feels more rested this morning. Pt stated his mood was improved yesterday after IOP because was able to talk about issues that were bothering him. Pt reported additional positive was being able to relax without having anxious or depressed thoughts. Pt stated I actually could just enjoy the moment. Pt reported he feels stable and content today. Pt denied current stressor. Progress noted with pt reporting improved mood. Pt to continue IOP to continue use of healthy coping, challenge negative thoughts, and prevent decompensation. Narrative Note: []
--- NOTE | 2019-09-02 10:11 | BH.SGPN.GN ---
This psychotherapy group was provided via telehealth using two-way, real-time interactive telecommunication technology between the patients and the provider. The interactive telecommunication technology included audio and video. The patient was offered telemedicine as an option for care delivery during the COVID-19 pandemic and consented to this option. Patient location: [place] Provider located at [facility] Behaviors/Verbalizations/Mental Status: []Pt eye contact good, casually dressed, motor activity appropriate, speech normal rate and tone, mood euthymic, congruent affect, thoughts linear and intact, no evidence of delusions or hallucinations. Client Response/Progress/Benefit: []Client was an active participant AEB completing worksheet, providing input, and listening attentively to peers. Client did well to work with the group to define anger and its causes, as well as the potential consequences of unhealthy management of anger. These included: losing relationships, guilt, damaged property, increased rumination, and other?s avoiding us. He provided personal examples regarding how his anger response has negatively impacted him in the past such as led to increased isolation or not getting his needs met. Worked with group to review common anger responses and shared that his common anger responses include: sarcasm or using humor to deflect, slamming doors, minimizing things, and bad language. Identified this is impacting his ability to effectively communicate with his supports. Client appeared to benefit from psychoeducation on the negative impacts of unmanaged anger and increasing self-awareness of own anger signs. Progress noted as client reports increased ability to identify healthy coping though continues to engage in avoidance and struggles with implementing self-care skills. Will continue IOP tx to prevent decompensation, promote healthy change behaviors, improve boundaries, and improve mood stability. Narrative Note: []
--- NOTE | 2019-09-02 11:08 | BH.SGPN.GN ---
This psychotherapy group was provided via telehealth using two-way, real-time interactive telecommunication technology between the patients and the provider.?The interactive telecommunication technology included audio and video.? ?The patient was offered telemedicine as an option for care delivery during the COVID-19 pandemic and consented to this option. ?Patient location: [place] ?Provider located at [facility] Behaviors/Verbalizations/Mental Status: []Client alert and oriented, neatly dressed and groomed. Eye contact good. Motor activity appropriate. Speech within normal limits. Affect congruent, mood euthymic. Thoughts linear, logical, no signs of hallucinations or delusions. Client Response/Progress/Benefit: []Client was an engaged participant throughout group AEB client providing input throughout discussion. Client contributed to the continued discussion of how people express anger as well as the underlying emotions of anger. Client reported his underlying emotions to anger often include; guilt, frustration, overwhelmed, and feeling unheard.. Client helped the group identify common warning signs of anger such as; feeling hot, tense, headaches, and restlessness. Group brainstormed with group healthy coping skills to help manage anger which included: mindfulness, deep breathing, angry dancing, going outside, and progressive muscle relaxation. Client selected angry dancing as his coping skill to manage anger. Client appeared to benefit from brainstorming with the group potential strategies to manage anger in healthy ways. Recommended continued IOP tx as client?s symptoms continue to impact his social, occupational, and familial functioning. Narrative Note: []
--- NOTE | 2019-09-16 13:03 | BH.DS_ITS ---
Discharge Summary - Demographics Date of Admission:: 08/16/19 Discharge Date: 09/16/19 Presenting Problems at Admission:: Client is a 28-year-old male with a history of depression and anxiety. Client denies any previous hospitalizations or suicide attempts. Client presents to [facility] due to worsening symptoms over the last 3-4 months and not benefiting from traditional outpatient counseling. Client was referred to [facility] by his . Client currently endorses increased fatigue, lack of energy, worthlessness, hopelessness, lack of motivation, and fleeting suicidal ideations within the past few months. Client reports the thoughts last about a minute and that he would never act on them. Client also endorses increased anxiety over the past few months. Anxiety symptoms include; racing thoughts, ruminations, restlessness, and panic attacks. Client reported his anxiety has prevented him from working and leads to avoidance behaviors. Client's current stressors include significant life changes within the past year including getting , getting a stepdaughter, and COVID-19. Client reported his 's mental health is not doing well right now either which is a trigger for client. Client's symptoms are currently impacting his social, familial, and occupational functioning. Discharge Diagnoses:: Major depressive disorder recurrent severe without psychosis F33.2; generalized anxiety disorder Reason for Discharge:: Therapist met with treatment team and it was determined that client will be discharged from [facility] due to client's inability to follow the attendance policy. - Treatment Progress During Treatment & Response: Limited progress due to client's lack of attendance which impacted client's ability to participate in group and individual sessions. Client cancelled multiple times during his time in [facility] and on days he was in attendance he was often late to group. When client was present for groups, he was an active participate who provided valuable insight to discussions. Client was engaged in individual therapy sessions, but he was inconsistent with completing therapy homework. Client self-reported at admission that he has a history of lack of follow through. Due to limited attendance, client did not complete the program or accomplish his treatment goals. Client did self-report progress in increased insight and learning healthier coping skills. Issues Still to be Addressed:: [place] setting, anxiety, ruminations, lack of confidence, depression with anhedonia and lack of motivation, and negative thinking. Discharge Recommendations/Instructions:: Client was encouraged to follow up with his outpatient providers at [facility]. Client did not know the names of his outpatient providers, but he sees a therapist and a psychiatrist at [facility]. Discharge Handout: Complete Discharge Handout with client on aftercare options and continuity of care.
--- NOTE | 2019-09-16 14:37 | BH.COMM_ITS ---
Communication Note - Communication with Client Communication Note: Client no called/no showed twice this week for scheduled IOP days. This therapist called client to inform him that he has missed two weeks straight of group. Client did not answer. Discussed with treatment team and client will be discharged from [facility] due to his lack of attendance. Therapist left a message explaining this to client. Client has outpatient mental health providers for continuity of care.
== END 2019-09-16 16:00 ==
LOC: BHIOP 09:00
PROVIDERS: Referring Provider Psychiatry & Neurology Psychiatry; Visit Provider Psychiatry & Neurology Psychiatry
DX: F33.2 Major depressive disorder, recurrent severe without psychotic features (principal); F41.1 Generalized anxiety disorder; Z79.899 Other long term (current) drug therapy
CPT/HCPCS: 99214; H0035; H2012; H2020; 90832; 90834; 90837